=== PATIENT | female | born 1960 | race Caucasian/White ===

== ENCOUNTER 2018-04-18 20:15 | Emergency (ER) | payer OTHER ==
[~2018-04-18] VITALS: Ht 149.9 cm; Wt 68.0 kg
[2018-04-18 20:15] VITALS: BP_SYST 161
--- NOTE | 2018-04-18 20:45 | NUR ---
Placed in room 05 . Placed on tonal regulator, blood pressure machine and pulse oximeter. To gown for exam. Side rails up. Report given to ARMAND Rossi.
--- NOTE | 2018-04-18 20:55 | NUR ---
Patient to ER via triage for possible F.B. in throat. Patient reports that she had swallowed meat at about noon, patient had vomited 2 pieces of meat, patient reports upper chest/throat discomfort. Patient now vomiting mucus, difficulty in keeping fluids down. Patient able to speak in full and complete sentances, oxygen saturation >95% on room air. Patient is awake, alert and oriented, in no acute distress, respirations even and unlabored, skin warm and dry to touch. Awaiting evaluation by ER MD, will continue to observe and assess.
--- NOTE | 2018-04-18 21:05 | NUR ---
Dr Tejeda at bedside to evaluate patient.
[2018-04-18] MEDS ORDERED: FAMOTIDINE 20 MG TABLET PO ONE (21:15)
[2018-04-18 21:55] VITALS: BP_SYST 148
--- NOTE | 2018-04-18 21:55 | NUR ---
Patient given written and verbal discharge instructions and verbalizes understanding. ER MD discussed with patient the results and treatment provided. Patient in stable condition. ID arm band removed. Rx of Pepcid given. Patient educated on pain management and to follow up with PMD. Pain Scale 0. Opportunity for questions provided and answered. Medication side effect fact sheet provided.
== END 2018-04-18 21:55 | disposition home or self-care (01) ==
LOC: SED 20:15
DX: R09.89 Other specified symptoms and signs involving the circulatory and respiratory systems (principal)
CPT/HCPCS: 71045; 99283